=== PATIENT | female | born 1980 | race Caucasian/White ===

== ENCOUNTER 2017-04-29 16:44 | Emergency (ER) | payer MEDICAID ==
[2017-04-29 18:59] VITALS: BP 99/70
== END 2017-04-29 18:59 | disposition home or self-care (01) ==
LOC: ED 16:44
DX: R07.89 Other chest pain (principal)
CPT/HCPCS: J1885

== ENCOUNTER 2017-10-04 04:55 | Emergency (ER) | payer SELFPAY ==
[~2017-10-04] VITALS: Ht 157.5 cm; Wt 70.8 kg
[2017-10-04 05:03] VITALS: Ht 157.5 cm; Wt 70.8 kg
[2017-10-04 06:41] LABS: CALCIUM 8.8 mg/dL (8.5-10.1); CHLORIDE SERUM 103 mmol/L (98-107); CREATININE SERUM 0.8 mg/dL (0.6-1.0); GFR1 > 60 mL/min; GLUCOSE SERUM 95 mg/dL (74-106); POTASSIUM SERUM 3.6 mmol/L (3.5-5.1); SODIUM SERUM 136 mmol/L (136-145)
[2017-10-04 06:48] LABS: ALBUMIN 3.6 g/dL (3.4-5.0); ALKALINE PHOSPHATASE 98 U/L (46-116); ALT/SGPT 17 U/L (14-59); AST/SGOT 15 U/L (15-37); BILIRUBIN TOTAL 0.4 mg/dL (0.20-1.00); LIPASE 100 IU/L (73-393)
[2017-10-04 07:41] LABS: BASOPHIL % 0.4 % (0-2); PLATELET COUNT 318 x10^3mcL (130-400); RED CELL DISTRIBUTION WIDTH 13.8 % (11.5-14.5)
[2017-10-04 09:11] VITALS: BP 120/85
== END 2017-10-04 09:11 | disposition home or self-care (01) ==
LOC: ED 04:55
PROVIDERS: Emergency Medicine
DX: K29.70 Gastritis, unspecified, without bleeding (principal); R10.13 Epigastric pain; K92.0 Hematemesis
CPT/HCPCS: 36415; Q0092; Q0162